=== PATIENT | female | born 1995 | race Caucasian/White ===

== ENCOUNTER 2017-02-22 04:03 | Emergency (ER) | payer OTHER, MEDICAID ==
[~2017-02-22] VITALS: Ht 167.6 cm; Wt 101.2 kg
[~2017-02-22 04:03] MED LIST: ACETAMINOPHEN325 M1 PO; ADIPEX-P37.5 M2 PO; AMOXICOT500 MG PO; CIPRO 500MG TA500 MG PO; CLARITIN-D 10 M1 T24 PO; DILAUDID4 MG PO; FERROUS SULFAT325 M2 PO; FERROUS SULFATE65 MG PO; FIORICET1 CAP PO; FLAGYL500 M1 PO; FLINTSTONES1 CTB PO; FOLIC ACID 1MG T1 MG PO; HYDROCODONE-APA1 TA1 PO; HYDROXYZINE HCL25 M1 PO; IMITREX100 MG PO; KEFLEX 500MG.500 MG PO; LORTAB 5/500 501 TAB PO; MACROBID 100MG100 MG OR; NITROFURANTOIN100 M2 PO; NOMEDS; PEPTO BISM262 MG/15 PO; PRENATAL PLUS1 TA1 PO; PRENATAL VITAMI1 TA3 PO; TOPAMAX100 MG PO; TYLENOL WITH CO1 TA1 PO; VICODIN 5/500 T1 TAB PO; [UNRECOGNIZED DRUG - OTHER] OR; [UNRECOGNIZED DRUG - OTHER] PO
[2017-02-22] MEDS ORDERED: WELLBUTRIN SR100 MG PO (04:11)
[2017-02-22 04:26] LABS: URINE BILIRUBIN - DIPSTICK NEGATIVE (NEG); URINE BLOOD NEGATIVE (NEG)
[2017-02-22 04:38] LABS: HEMOGLOBIN 12.9 g/dL (12.2-16.2); LYMPH % 29.4 % (10-50.0)
[2017-02-22 04:53] LABS: BUN 10 mg/dL (7-18)
[2017-02-22 04:56] LABS: GFR (ESTIMATED) 91 ML/MIN (59-)
--- NOTE | 2017-02-22 05:14 | Emergency Room Report ---
History of Present Illness Time Seen by MD Tejeda Presenting Problem in Triage Pt arrived:Walked Presenting Problem:PT RPTS SHE WAS SLEEPING TONIGHT WHEN HER "CHEST PAIN AND PAIN RIGHT HERE WOKE ME UP." PT C/O EPIGASTRIC AND LEFT ANTERIOR CHEST PAIN, RADIATING TO HER STERNUM. PT DESCRIBES THE PAIN "STABBING" THAT'S INTERMITTENT. PT RPTS SHE WAS SEEN HERE AT [facility] IN THE ER 1 MONTH AGO FOR SIMILAR SYMPTOMS. PT WAS TOLD TO F/U WITH A GI SPECIALIST, BUT RPTS SHE HASN'T BEEN ABLE TO MAKE HER APPT YET. Onset of symptoms date/time:/ or onset unknown for:MEDICAL HX UNKNOWN Treatment Prior to Arrival: PT RPTS SHE TOOK A TYLENOL 3 AT 2200 YESTERDAY EVENING BEFORE GOING TO [facility]ED [facility]IL [facility] Provided by:SELF Sepsis Risk Assessment: Temp: 98.7 B/P: 117/66 MAP: 83 Pulse: 78 Resp: 18 Recent fever? N Clinical Suspician of Infection? N Mental Status: 1 - Regular (Normal Baseline) Sepsis Risk: Have you (or family members/close friends) recently traveled outside the [place]? N If Yes, where/when: Have you had exposure to infectious disease within the past month? N TB? Other? Specify: Source patient, RN notes reviewed, family, old records Exam Limitations no limitations Comment acute onset of upper abd pain which started this am and has pending gi eval- no melena - she reports pain triggered by milk and carbonated beverages Cardiac Chest Pain Chest pain indicative of cardiac No Timing/Duration this evening Severity moderate ALLERGIES Coded Allergies: sulfamethoxazole (From BACTRIM) (Severe, THROAT SWELLING 01/19/17) trimethoprim (From BACTRIM) (Severe, THROAT SWELLING 01/19/17) Home Medications Reported Medications ACETAMINOPHEN WITH CODEINE (Tylenol With Codeine #3 Tablet) 1 TAB PO PRN PAIN BUPROPION HCL SR (Wellbutrin SR 100MG) 100 MG PO TID History Medical History General CAD? No Angina: No CA: No Hypertension? Yes Hyperlipidemia? No CHF? No DVT? No PE? No COPD? No Asthma? No Anemia? No GERD? No Gastric ulcers? No GI Bleed? No Hernia? No Thyroid Problems? No Hypothyroidism? No CVA? No Seizures? No Diabetes? No Renal Insuffiency? No End Stage Renal Disease? No UTI? No Stones? No BPH? No GB Disease: Yes Nephritic Syndrome? No Asplenia? No Hepatitis? No Sickle Cell Disease? No Arthritis? No Migraines? No Cataracts? No Glaucoma? No MRSA? No HIV? No TB? No Anxiety? No Depression? No Cancer? No More? Yes Additional hx: HYSTERECTOMY 2015 Immunization Hx DT/Tetanus Unknown Flu Refused Pneumonia Refuses Surgical Hx Previous Surgery?Y WISDOM TEETH REMOVAL TONSILLECTOMY GALLBLADDER REMOVAL LAP OVARIAN CYST REMOVAL TUBAL ANNE RN INFUSION Hx LMP N/A Family History Family Hx Diabetes Yes CAD No Hypertension Yes Hyperlipidemia No Cancer Yes TB No Social History Smoking Hx Smoker: Never Smoker Tobacco: No Alcohol Alcohol: No Drugs none Review of Systems All Other Systems Reviewed and Negative Constitutional denies fever Eyes denies drainage ENT denies: ear discharge, epistaxis, throat pain. Respiratory denies cough, denies shortness of breath, denies wheezing Cardiovascular denies chest pain, denies syncope Gastrointestinal see HPI, abdominal pain, denies diarrhea, nausea, vomiting Genitourinary denies: abnormal vaginal bleeding, dysuria, frequency, hesitancy. Musculoskeletal denies back pain, denies joint pain, denies joint swelling, denies neck pain Skin denies rash Psychiatric/Neurological denies headache, denies seizure Physical Exam Vital Signs Vital Signs Date Time Temp Pulse Resp B/P Pulse O2 O2 Flow FiO2 Ox Delivery Rate 02/22 0446 18 02/22 0405 98.7 78 18 117/66 100 - WBC >12,000 or <4,000 or 10% bands? 2 or more SIRS Criteria Met? B/P:117/66 MAP:83 Creatinine >2.0? UA output<0.5ml/kg/hr for 2 hrs? Platelet count >100,000? Lactate >2.0mmol/1? INR >1.2 or PTT > than 60 sec? Evidence of Organ Dysfunction? Provider documented clinical suspician of infection? N Sepsis Criteria Count: 0 Sepsis Risk: General Appearance no apparent distress Eye Exam - bilateral eye PERRL, bilateral eye EOMI Ear, Nose, Throat normal ENT inspection Neck supple Respiratory Status No: respiratory distress. Lung Sounds bilateral: lungs clear. 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 No Results/Orders Laboratory Tests 02/22/17416: Urine Color YELLOW, Urine Appearance CLEAR, Urine pH 6.0, Ur Specific [place] 1.025, Urine Protein NEGATIVE, Urine Ketones NEGATIVE, Urine Blood NEGATIVE, Urine Nitrate NEGATIVE, Urine Bilirubin NEGATIVE, Urine Urobilinogen 0.2, Ur Leukocyte Esterase NEGATIVE, Urine RBC OCC, Urine WBC 3-5, Ur Squamous Epith Cells 5-10, Urine Bacteria 1+, Urine Mucus 1+, Urine Glucose NEGATIVE 02/22/17414: Sodium 141, Potassium 3.3 L, Chloride 106, Carbon Dioxide 30, BUN 10, Creatinine 0.8, Estimated Creat Clear 178, Estimated GFR (MDRD) 91, Glucose 97, Calcium 8.2 L, Total Bilirubin 0.8, AST 16, ALT 18, Alkaline Phosphatase 94, Creatine Kinase 86, CK-MB (CK-2) Rel Index 0.6, CK and CKMB Interp < 0.5, Troponin I < 0.02, Total Protein 7.2, Albumin 3.5, Globulin 3.7 H, Albumin/ Globulin Ratio 0.9 L, WBC 10.2, RBC 4.45, Hgb 12.9, Hct 39.2, MCV 88.1, RDW 12.7, Plt Count 205, MPV 6.1 L, Gran % 59.1, Gran # 6.0, Lymphocytes % 29.4, Monocytes % 6.9, Eosinophils % 4.4, Basophils % 0.3, Lymphocytes # 3.0, Monocytes # 0.7, Eosinophils # 0.4, Basophils # 0.0, PUBS MCHC 33.0, MCH 29.1 Current Medication Orders Sig/Sarah Beth Start time Last Medication Dose Route Stop Time Status Admin Famotidine 20 MG ONCE ONE 02/22 530 DC 02/22 IV 02/22 Metoclopramide HCl 10 MG ONCE ONE 02/22 530 DC 02/22 IVP 02/22 Sodium Chloride 8 ML ONCE ONE 02/22 530 DC 02/22 IV 05/04 0531 0529 Famotidine 0 .STK-MED ONE 02/22 0522 DC IV Metoclopramide HCl 0 .STK-MED ONE 02/22 0521 DC .ROUTE Ketorolac 0 .STK-MED ONE 02/22 0444 DC Tromethamine .ROUTE Ondansetron HCl 0 .STK-MED ONE 02/22 0444 DC .ROUTE Ketorolac 30 MG ONCE ONE 02/22 0415 DC 02/22 Tromethamine IV 02/22 0416 0446 Ondansetron HCl 4 MG ONCE ONE 02/22 0415 DC 02/22 IV 02/22 0416 0446 Sodium Chloride 10 ML PRN PRN 02/22 0415 AC IV 02/23 0414 Orders Procedure Date/time Status DIET-NOTHING BY MOUTH 02/22 B Active LIPASE 02/[address] ABD & PELVIS W/O CONTRAST 02/23 424 Active ELECTROCARDIOGRAM REQUEST 02/[address] ABD/PELVIS REQ 02/22 0416 Complete CHEST(2 VIEWS-NOT PORTABLE) 02/22 0416 Active IV SALINE LOCK 02/22 0416 Active URINALYSIS/COMPLETE 02/23 416 Complete CBC WITH AUTO DIFF 02/23 416 Complete CARDIAC ENZYMES 02/23 416 Complete CHEM 12 PROFILE 02/23 416 Complete CM/EKG CM/mechatronics engineer Rhythm Normal Sinus Rhythm EKG no evid. of ischemic chgs XRAY/CT/US XRAY/CT/US 1 XRAY chest XR interpretation by reviewed by me Xray Results normal/NAD XRAY/CT/US 2 CT abdomen, pelvis CT interpretation by discussed w/radiologist Time results known: 05 CT Results abnormal (nonspecific) Departure Departure Time of Disposition 0540 Disposition DC Home or Self Care(routine) Clinical Impression Primary Impression: Gastritis Qualifiers: Gastritis type: unspecified gastritis Chronicity: acute Gastritis bleeding: without bleeding Qualified Code: K29.00 - Acute gastritis without bleeding Condition STABLE Referrals Elroy Barker MD (Family) Patient Instructions DI for Nausea -- Adult Additional Instructions call pcp for follow up Discharge Counseling Counseled pt/family regarding diagnosis, test results, medications/RX, follow up needs ED Critical Care Critical Care No at [id number]
[2017-02-22 05:52] VITALS: BP 100/53
--- NOTE | 2017-02-22 06:57 | RADIOLOGY REPORT PS360 ---
CHEST(2 VIEWS-NOT PORTABLE) HISTORY: CHEST PAIN ORDERING PHYSICIAN: Arlet Barker MD PATIENT AGE: 21 years COMPARISON: None available FINDINGS: The cardiomediastinal silhouette and pulmonary vascularity are within normal limits. The lungs are clear without infiltrates, suspicious nodules, or pleural effusions. No acute bony abnormalities. Calcified granuloma is present in the left lower lobe IMPRESSION: Negative chest, no acute finding, old granulomatous disease
--- NOTE | 2017-02-22 07:38 | RADIOLOGY REPORT PS360 ---
CT ABD PELVIS W/O CONTRAST CLINICAL INDICATION: Upper abdominal pain ABD PAIN ORDERING PHYSICIAN: Arlet Barker MD PATIENT AGE: 21 years COMPARISON: [id number] TECHNIQUE: Axial images obtained with sagittal and coronal reformats. PROCEDURE: Oral Contrast: None IV Contrast: None . FINDINGS: Lower thorax: No acute finding ABDOMEN: Liver: Cholecystectomy. No biliary dilatation Gallbladder: Nondistended. No radio opaque stones. Pancreas: No masses or peripancreatic fluid collections. Spleen: Unremarkable. Adrenals: Unremarkable Kidneys/ureters: No masses. No renal calculi. No hydronephrosis. No perinephric fluid collections. No ureteral dilatation or obvious ureteral calculi. Stomach bowel: There are moderate amount stool in the colon. There are a few fluid-filled loops of jejunum noted with few scattered air-fluid levels nonspecific Appendix: No evidence of appendicitis. PELVIS: Reproductive: Hysterectomy. Enlarged left ovary with 3 cm area of isodensity with fluid fluid level. Suspect hemorrhagic ovarian cyst. Bladder: Nondistended. No obvious stones or masses. ABDOMEN & PELVIS: Peritoneum: Small amount fluid is present in the cul-de-sac. Lymph nodes: No enlarged lymph nodes apparent. Vasculature: No evidence of abdominal aortic aneurysm. No retroperitoneal hemorrhage evident. Bones: No acute finding IMPRESSION: 1. Probable 3 cm hemorrhagic left ovarian cyst with small amount fluid in the cul-de-sac. Left ovary slightly increased in size compared to the previous exam. Consider pelvic ultrasound for further evaluation. 2. Scattered air-fluid levels with questionable mucosal thickening of the jejunum. Enteritis is a consideration.
== END 2017-02-22 05:53 | disposition home or self-care (01) ==
LOC: ER 04:03
PROVIDERS: Emergency Medicine
DX: K29.00 Acute gastritis without bleeding (principal)
CPT/HCPCS: J2405

== ENCOUNTER 2017-05-20 23:44 | Emergency (ER) | payer OTHER, MEDICAID ==
[~2017-05-20] VITALS: Ht 167.6 cm; Wt 99.8 kg
[~2017-05-20 23:44] MED LIST changes: +WELLBUTRIN SR100 MG PO
[2017-05-20] MEDS ORDERED: ADIPEX-P37.5 M2 PO (23:55)
--- OUTSIDE RECORDS SUMMARY | 2017-05-21 00:18 | External Medical Summary Rpt ---
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, BILATERAL [id number] J02.0 STREPTOCOCC AL PHARYNGITIS K29.70 GASTRITIS, UNSPECIFIED , WITHOUT BLEEDING K52.9 NONINFECTIV E GASTROENTER ITIS AND COLITIS, UNSPECIFIED 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 BREATHING Severe Sulfamethoxazole S-DIFF. BREATHING Severe Medications Na ND Rx Da Fi Fi Am Da Di Ph RX Ph St me C No te ll ll ou ys ag ar # ys at rm s nt no ma ic us Or Da si cy ia de te s n re d Sa 63 10 0 No li 80 -2 ne 70 3- Lo 10 20 ng Fl 07 13 er us 5 h Ac 10 ti ML ve Sy ri ng e Vital Signs 08-13-2013 21:30 Name Value Interpretat Reference Comment ion Range BP 70 mm[Hg] Diastolic BP Systolic 137 mm[Hg] Heart 69 /min Rate/Pulse O2% 98 % Respiratory 20 /min Rate 08-13-2013 21:00 Name Value Interpretat Reference Comment ion Range BP 68 mm[Hg] Diastolic BP Systolic 138 mm[Hg] Heart 78 /min Rate/Pulse O2% 100 % Respiratory 20 /min Rate Results Labs Lab Lab Date Result Refere Interp Status Commen Order Detail nces retati t Range on B-HCG Ur Ql (08-13-2013 21:10) B-HCG 10-23-2 NEGATIV NEG complet Ur Ql 013 E ed 21:10 URINALYSIS/COMPLETE (08-13-2013 21:10) URINE 10-23-2 YELLOW YELLOW complet COLOR 013 ed 21:10 URINE 10-23-2 CLEAR CLEAR complet APPEARA 013 ed NCE 21:10 URINE 10-23-2 NEGATIV NEG complet GLUCOSE 013 E ed - 21:10 DIPSTIC K URINE 10-23-2 NEGATIV NEG complet BILIRUB 013 E ed IN - 21:10 DIPSTIC K URINE 10-23-2 NEGATIV NEG complet KETONE 013 E mg/dL ed 21:10 URINE 10-23-2 1.015 1.005-1 complet SPECIFI 013 UNK .030 ed C 21:10 GRAVITY URINE 10-23-2 NEGATIV NEG complet BLOOD 013 E ed 21:10 URINE 10-23-2 6.0 UNK 5.0-8.5 complet PH 013 ed 21:10 URINE 10-23-2 NEGATIV NEG complet PROTEIN 013 E mg/dL ed - 21:10 DIPSTIC K URINE 10-23-2 0.2 NEG complet UROBILI 013 E.U./dL ed NOGEN - 21:10 DIPSTIC K URINE 10-23-2 NEGATIV NEG complet NITRATE 013 E ed - 21:10 DIPSTIC K URINE 10-23-2 TRACE NEG complet LEUK 013 ed ESTERAS 21:10 E URINE 10-23-2 5-10 O complet WBC 013 wbc/hpf ed 21:10 URINE 10-23-2 10-20 0-5 complet SQUAMOU 013 #/hpf ed S CELLS 21:10 URINE 10-23-2 2+ O complet BACTERI 013 ed A 21:10 URINE 10-23-2 2+ OCC complet MUCUS 013 ed 21:10 COMPREHENSIVE METABOLIC PANEL (08-13-2013 20:24) Glucose 10-23-2 92 74-106 complet 013 mg/dL ed Bld-mCn 20:24 c BUN 10-23-2 8 mg/dL 7-18 complet Bld-mCn 013 ed c 20:24 Creat 23-2 0.9 0.6-1.0 complet SerPl-m 013 mg/dL ed Cnc 20:24 Sodium 23-2 140 136-145 complet SerPl-s 013 mmoL/L ed Cnc 20:24 Potassi 08-13-2 3.3 3.5-5.1 complet um 013 mmoL/L ed SerPl-s 20:24 Cnc Chlorid 08-13-2 105 98-107 complet e 013 mmoL/L ed SerPl-s 20:24 Cnc CO2 08-13-2 28 21.0-32 complet SerPl-s 013 mmoL/L .0 ed Cnc 20:24 Calcium 23-2 8.6 8.5-10. complet 013 mg/dL 1 ed SerPl-m 20:24 Cnc Prot 23-2 7.5 6.4-8.2 complet SerPl-m 013 gm/dL ed Cnc 20:24 Albumin 08-13-2 4.1 3.4-5.0 complet 013 gm/dL ed SerPl-m 20:24 Cnc Globuli 08-13-2 3.4 1.3-3.2 complet n 013 gm/dL ed Ser-mCn 20:24 c Albumin 08-13-2 1.2 UNK 1.1-1.8 complet /Glob 013 ed SerPl-m 20:24 Rto Bilirub 08-13-2 0.9 0.2-1.0 complet 013 mg/dL ed SerPl-m 20:24 Cnc AST 08-13-2 15 U/L 15-37 complet SerPl-c 013 ed Cnc 20:24 ALT 23-2 30 U/L 30-65 complet SerPl-c 013 ed Cnc 20:24 ALP 23-2 164 U/L 50-136 complet SerPl-c 013 ed Cnc 20:24 Amylase SerPl-cCnc (08-13-2013 20:24) Amylase 1023-2 40 U/L 25-115 complet 013 ed SerPl-c 20:24 Cnc LIPASE (08-13-2013 20:24) LIPASE 23-2 62 U/L 73-393 complet 013 ed 20:24 CBC with AUTO DIFF (08-13-2013 20:24) WBC # 10-23-2 6.5 4.5-13. complet Bld 013 K/MM3 0 ed Auto 20:24 RBC # 10-23-2 4.61 4.2-5.4 complet Bld 013 M/mm3 ed Auto 20:24 Hgb 10-23-2 12.8 12.2-16 complet Bld-mCn 013 g/dL .2 ed c 20:24 Hct Fr 10-23-2 39.2 % 37.0-47 complet Bld 013 .0 ed 20:24 MCV RBC 10-23-2 85.1 fl 82.2-97 complet 013 .8 ed 20:24 MCH RBC 10-23-2 27.9 pg 27-31.2 complet Qn 013 ed Auto 20:24 MEAN 10-23-2 32.7 31.8-35 complet CORPUSC 013 g/dl .4 ed ULAR 20:24 HGB CONC RDW RBC 10-23-2 15.0 % 11.5-17 complet Auto 013 .5 ed 20:24 Platele 10-23-2 239 142-424 complet t Bld 013 K/mm3 ed Ql 20:24 Manual MEAN 10-23-2 7.3 fl 7.4-10. complet PLATELE 013 4 ed T 20:24 VOLUME Granulo 10-23-2 60.1 % 37.0-80 complet cytes 013 .0 ed Fr Bld 20:24 Auto LYMPH % 10-23-2 31.5 % 10-50 complet 013 ed 20:24 Monocyt 10-23-2 5.7 % complet es Fr 013 ed Bld 20:24 Auto Eosinop 10-23-2 2.2 % 0.1-12. complet hil Fr 013 0 ed Bld 20:24 Auto Basophi 10-23-2 0.3 % 0.1-2.0 complet ls Fr 013 ed Bld 20:24 Auto Granulo 10-23-2 3.9 1.8-7.8 complet cytes # 013 K/mm3 ed Bld 20:24 Auto Lymphoc 10-23-2 2.1 0.7-4.5 complet ytes Fr 013 K/mm3 ed Bld 20:24 Auto Monocyt 10-23-2 0.4 0.1-1.0 complet es # 013 K/mm3 ed Bld 20:24 Auto Eosinop 10-23-2 0.1 0.0-0.4 complet hil # 013 K/mm3 ed Bld 20:24 Auto Basophi 0.0 0-0.2 complet ls # 013 K/MM3 ed Bld 20:24 Auto Encounters Encounter Start End Date Code Location Performer Type Date Emergency ANA Barker MD (ER) 3 20:25 3 21:59 [facility]
--- OUTSIDE RECORDS SUMMARY | 2017-05-21 00:18 | External Medical Summary Rpt ---
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 BREATHING Severe Sulfamethoxazole S-DIFF. [...] Barker MD (ER) 3 20:25 3 21:59 [facility]
--- OUTSIDE RECORDS SUMMARY | 2017-05-21 00:19 | External Medical Summary Rpt ---
Author Author [employer] Organization [employer] Address Unknown Phone Unavailable Purpose Continuity of Care Document - through 2016
--- OUTSIDE RECORDS SUMMARY | 2017-05-21 00:19 | External Medical Summary Rpt ---
Demographics Preferred Language Arabic Marital Status Unknown Buddhist Affiliation Unknown Race Unknown Ethnic Group Unknown Author Author CASIE Address Unknown Phone Immunization Unable to retrieve immunization data due to connection failure with Immunization Registry. Please try again later.
--- OUTSIDE RECORDS SUMMARY | 2017-05-21 00:19 | External Medical Summary Rpt ---
Author Author CASIE Wen, CASIE [employer] Organization [employer] Address Unknown Phone Unavailable
--- OUTSIDE RECORDS SUMMARY | 2017-05-21 00:19 | External Medical Summary Rpt ---
Demographics Preferred Language Pashto Marital Status Unknown Holiness Affiliation Unknown Race Unknown Ethnic Group Unknown Author Author CASIE Address Unknown Phone Immunization Unable to retrieve immunization data due to connection failure with Immunization Registry. Please try again later.
[2017-05-21 00:31] LABS: HEMOGLOBIN 12.7 g/dL (12.2-16.2); LYMPH # 1.3 K/mm3 (0.7-4.5); LYMPH % 13.1 % (10-50.0)
--- NOTE | 2017-05-21 00:33 | Emergency Room Report ---
History of Present Illness Time Seen by 234Dean Presenting Problem in Triage Pt arrived:Walked Presenting Problem:STATES THAT SHE HAS HAD A MIGRAINE FOR 3 HOURS NOW. ALSO LEFT MID ABDOMEN PAIN. STATES THAT SHE HAS THROWN UP. 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 N Clinical Suspician of Infection? N Mental Status: 1 - Regular (Normal Baseline) Sepsis Risk:Low Sepsis Risk Have you (or family members/close friends) recently traveled outside the [place]? N If Yes, where/when: Have you had exposure to infectious disease within the past month? N TB? Other? Specify: Comment The patient has 2 complaints. She has a history of migraines which she says have become more frequent, daily over the past 4 months. She says that usually they will respond to Motrin, but if they don't she comes to the emergency room. She now has a right-sided migraine for 3 hours, unresponsive to Motrin. One episode of vomiting. She says she sees Dr. Barker's nurse practitioner and they are aware of her headaches, but are only treating her with Motrin. She also complains of LEFT upper quadrant abdominal pain for a couple of days. ALLERGIES Coded Allergies: sulfamethoxazole (From BACTRIM) (Severe, THROAT SWELLING 01/19/17) trimethoprim (From BACTRIM) (Severe, THROAT SWELLING 01/19/17) Home Medications Reported Medications Phentermine HCl (Adipex-P) 37.5 MG PO DAILY History Medical History General CAD? No Angina: No [place]: No Hypertension? Yes Hyperlipidemia? No CHF? No DVT? No PE? No COPD? No Asthma? No Anemia? No GERD? No Gastric ulcers? No GI Bleed? No Hernia? No Thyroid Problems? No Hypothyroidism? No CVA? No Seizures? No Diabetes? No Renal Insuffiency? No End Stage Renal Disease? No UTI? No Stones? No BPH? No GB Disease: Yes Nephritic Syndrome? No Asplenia? No Hepatitis? No Sickle Cell Disease? No Arthritis? No Migraines? No Cataracts? No Glaucoma? No MRSA? No HIV? No TB? No Anxiety? No Depression? Yes Cancer? No More? 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 She has had 3 CT scans of the abdomen this year, 01/19/17, 01/21/17, and 02/22/17. These show a LEFT ovarian cyst and questionable colitis or enteritis. Review of Systems All Other Systems Reviewed and Negative Constitutional denies fever Gastrointestinal abdominal pain, vomiting Psychiatric/Neurological headache, denies numbness, denies weakness Physical Exam Vital Signs Vital Signs Date Time Temp Pulse Resp B/P Pulse O2 O2 Flow FiO2 Ox Delivery Rate 05/21 0145 97.9 84 16 133/79 100 05/21 0135 84 16 133/79 100 05/21 0126 18 05/21 0038 81 16 129/84 100 05/20 2350 97.9 88 18 110/72 100 General Appearance normal appearance, WD/WN Eye Exam - bilateral eye normal exam, bilateral eye PERRL, bilateral eye EOMI Ear, Nose, Throat hearing grossly normal, normal ENT inspection Neck normal inspection, non-tender, supple, full range of motion Respiratory Status Yes: trachea midline, chest symmetrical, non tender chest. No: respiratory distress. Lung Sounds bilateral: normal breath sounds, lungs clear. 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 No Results/Orders Laboratory Tests 07/31/17 0034: Urine Color YELLOW, Urine Appearance SL CLOUDY, Urine pH 6.5, Ur Specific Shar[place] 1.025, Urine Protein NEGATIVE, Urine Ketones NEGATIVE, Urine Blood NEGATIVE, Urine Nitrate NEGATIVE, Urine Bilirubin NEGATIVE, Urine Urobilinogen 0.2, Ur Leukocyte Esterase NEGATIVE, Urine WBC OCC, Ur Squamous Epith Cells 10- 20, Calcium Oxalate Crystal 4+, Urine Mucus 4+, Urine Glucose NEGATIVE 05/21/1722: Amylase 40, Lipase 72 L 05/21/1722: Sodium 141, Potassium 3.7, Chloride 104, Carbon Dioxide 29, BUN 13, Creatinine 0.8, Estimated Creat Clear 175, Estimated GFR (MDRD) 91, Glucose 130 H, Calcium 9.3, Total Bilirubin 1.0, AST 17, ALT 17, Alkaline Phosphatase 99, Total Protein 7.6, Albumin 4.0, Globulin 3.6 H, Albumin/Globulin Ratio 1.1, WBC 10.1, RBC 4.52, Hgb 12.7, Hct 39.8, MCV 88.1, RDW 13.2, Plt Count 225, MPV 7.1 L, Gran % 80.1 H, Gran # 8.1 H, Lymphocytes % 13.1, Monocytes % 4.5, Eosinophils % 2.0, Basophils % 0.3, Lymphocytes # 1.3, Monocytes # 0.5, Eosinophils # 0.2, Basophils # 0.0, PUBS MCHC 32.0, MCH 28.2 Current Medication Orders Sig/Sarah Beth Start time Last Medication Dose Route Stop Time Status Admin Diphenhydramine HCl 25 MG ONCE ONE 05/21 130 DC 05/21 IV 05/21 Ketorolac 30 MG ONCE ONE 05/21 130 DC 05/21 Tromethamine IV 05/21 Metoclopramide HCl 10 MG ONCE ONE 05/21 130 DC 05/21 IVP 05/21 Diphenhydramine HCl 0 .STK-MED ONE 05/21 125 DC .ROUTE Ketorolac 0 .STK-MED ONE 05/21 124 DC Tromethamine .ROUTE Metoclopramide HCl 0 .STK-MED ONE 05/21 124 DC .ROUTE Sodium Chloride 10 ML PRN PRN 05/21 0015 DCD IV 05/22 0007 Orders Procedure Date/time Status LIPASE 05/21 32 Complete AMYLASE 05/21 32 Complete IV SALINE LOCK 05/21 7 Active URINALYSIS/COMPLETE 05/21 7 Complete CBC WITH AUTO DIFF 05/21 7 Complete CHEM 12 PROFILE 05/21 7 Complete Progress - 1:40 AM: Patient states she is feeling better after intravenous medications and is requesting to be discharged. Abdomen is very soft, benign without peritoneal signs. I do not feel she needs another CT scan, having just had 3 in the past couple of months. I explained this to the patient. Departure Departure Disposition DC Home or Self Care(routine) Clinical Impression Primary Impression: Migraine Qualifiers: Migraine type: without aura Status migrainosus presence: with status migrainosus Intractability: not intractable Qualified Code: G43.001 - Migraine without aura, not intractable, with status migrainosus Secondary Impressions: Abdominal pain, left upper quadrant Condition STABLE Referrals Lucero [place],Elroy Celestin (Family) Patient Instructions DI for Migraine Additional Instructions Additional instructions for HEADACHE: See your physician as soon as possible for further evaluation. Return immediately if worsening headache, vomiting, problems with vision or speech, fever, numbness or weakness of the extremities, neck pain or stiffness. ED Critical Care Critical Care No at [id number]
[2017-05-21 00:41] LABS: URINE BILIRUBIN - DIPSTICK NEGATIVE (NEG); URINE BLOOD NEGATIVE (NEG)
[2017-05-21 01:45] VITALS: BP 133/79
== END 2017-05-21 01:45 | disposition home or self-care (01) ==
LOC: ER 23:44
PROVIDERS: Emergency Medicine
DX: G43.001 Migraine without aura, not intractable, with status migrainosus (principal); I10 Essential (primary) hypertension; R10.12 Left upper quadrant pain

== ENCOUNTER 2017-07-14 01:11 | Emergency (ER) | payer OTHER, MEDICAID ==
[~2017-07-14] VITALS: Ht 167.6 cm; Wt 97.5 kg
[2017-07-14] MEDS ORDERED: WELLBUTRIN SR100 MG PO (01:35)
[2017-07-14 02:03] LABS: LYMPH # 2.3 K/mm3 (0.7-4.5); LYMPH % 23.3 % (10-50.0); URINE BILIRUBIN - DIPSTICK NEGATIVE (NEG); URINE BLOOD NEGATIVE (NEG)
[2017-07-14 02:14] LABS: AMPHETAMINES/METAMPHETAMINES NEGATIVE ng/mL (<1000)
--- NOTE | 2017-07-14 03:13 | Emergency Room Report ---
History of Present Illness Time Seen by MD Singer Presenting Problem in Triage Pt arrived:Walked Presenting Problem:states anti-depressant is not working. feelings of not wanting to be here anymore, flight of thought. tearful and emotionally labile. distraught over loss of close aunt to violent crime and feelings of isolation. Onset of symptoms date/time:07/10/17 or onset unknown for: Treatment Prior to Arrival: wellbutrin GUIDE ALPINE Provided by:PHYSICIAN Sepsis Risk Assessment: Temp: 98 B/P: 138/88 MAP: 87 Pulse: 99 Resp: 20 Recent fever? N Clinical Suspician of Infection? N Mental Status: 1 - Regular (Normal Baseline) Sepsis Risk:Low Sepsis Risk Have you (or family members/close friends) recently traveled outside the [place]? N If Yes, where/when: Have you had exposure to infectious disease within the past month? N TB? Other? Specify: Source patient, RN notes reviewed, family, old records Exam Limitations no limitations Comment pt with depression over the last few months and over the last few days has inc anxiety but she denied suidial thoughts at this time - her sister also feels she is not suicidial Cardiac Chest Pain Chest pain indicative of cardiac No Timing/Duration this evening Severity moderate ALLERGIES Coded Allergies: sulfamethoxazole (From BACTRIM) (Severe, THROAT SWELLING 01/19/17) trimethoprim (From BACTRIM) (Severe, THROAT SWELLING 01/19/17) Home Medications Reported Medications Phentermine HCl (Adipex-P) 37.5 MG PO DAILY BUPROPION HCL SR (Wellbutrin SR 100MG) 100 MG PO BID History Medical History General CAD? No Angina: No [place]: No Hypertension? Yes Hyperlipidemia? No CHF? No DVT? No PE? No COPD? No Asthma? No Anemia? No GERD? No Gastric ulcers? No GI Bleed? No Hernia? No Thyroid Problems? No Hypothyroidism? No CVA? No Seizures? No Diabetes? No Renal Insuffiency? No End Stage Renal Disease? No UTI? No Stones? No BPH? No GB Disease: Yes Nephritic Syndrome? No Asplenia? No Hepatitis? No Sickle Cell Disease? No Arthritis? No Migraines? No Cataracts? No Glaucoma? No MRSA? No HIV? No TB? No Anxiety? No Depression? Yes Cancer? No More? 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 Respiratory denies cough, denies shortness of breath, denies stridor, denies wheezing Cardiovascular denies chest pain, denies palpitations, denies syncope Gastrointestinal denies abdominal pain, denies diarrhea, denies vomiting Genitourinary denies: dysuria, frequency, hesitancy, hematuria. Musculoskeletal denies back pain, denies joint pain, denies joint swelling, denies neck pain Skin denies rash Psychiatric/Neurological see HPI, anxiety, depressed, denies seizure Physical Exam Vital Signs Vital Signs Date Time Temp Pulse Resp B/P Pulse O2 O2 Flow FiO2 Ox Delivery Rate 07/14 0259 99 20 138/88 100 07/14 0124 98.0 87 14 109/76 98 - WBC >12,000 or <4,000 or 10% bands? 2 or more SIRS Criteria Met? B/P:138/88 MAP:87 Creatinine >2.0? UA output<0.5ml/kg/hr for 2 hrs? Platelet count >100,000? Lactate >2.0mmol/1? INR >1.2 or PTT > than 60 sec? Evidence of Organ Dysfunction? Provider documented clinical suspician of infection? N Sepsis Criteria Count: 0 Sepsis Risk: Low Sepsis Risk General Appearance no apparent distress Eye Exam - bilateral eye PERRL, bilateral eye EOMI Ear, Nose, Throat normal ENT inspection Neck supple Respiratory Status No: respiratory distress. 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 Yes Risk Assessment Score Risk Assessment Score Response Value DETAILS: N/A-Doesn't apply 0 AVAILABILITY OF MEANS: Not available;have to get 1 TIME: N/A-Doesn't apply 0 LETHALITY OF METHOD: N/A-Doesn't apply 0 CHANCE OF INTERVENTION: Others present most time 1 PREVIOUS SUICIDE ATTEMPS: None or one low lethality 1 STRESS: Mod reaction to loss/chng 2 COPING BEHAVIOR: Daily activities continue 1 DEPRESSION: Mod, some sadness/lonely 2 SUICIDE RESOURCES: S.O. available/willing 1 COMMUNICATION ASPECTS: Directly express feeling 1 LIFESTYLE: Stable at work/school 1 MEDICAL STATUS: No sig. medical problems 1 Total 12 Nursing notified of risk? Yes Medical Decision Making LABS/Meds/Orders Pt receiving controlled substance in ED? No Results/Orders Laboratory Tests 07/14/17149: Sodium 139, Potassium 3.7, Chloride 104, Carbon Dioxide 31, BUN 11, Creatinine 0.8, Estimated Creat Clear 171, Estimated GFR (MDRD) 91, Glucose 96, Calcium 9.7 , WBC 9.7, RBC 4.80, Hgb 14.0, Hct 41.4, MCV 86.3, RDW 12.9, Plt Count 255, MPV 7.4, Gran % 66.0, Gran # 6.4, Lymphocytes % 23.3, Monocytes % 7.4, Eosinophils % 2.9, Basophils % 0.4, Lymphocytes # 2.3, Monocytes # 0.7, Eosinophils # 0.3, Basophils # 0.0, PUBS MCHC 33.9, MCH 29.3, Opiates Screen NEGATIVE, Urine Methadone Screen NEGATIVE, Barbiturates NEGATIVE, Phencyclidine Screen NEGATIVE, Amphetamines Screen NEGATIVE, Benzodiazepines Screen NEGATIVE, Cocaine Screen NEGATIVE, Marijuana (THC) Screen NEGATIVE, Urine Color YELLOW, Urine Appearance CLEAR, Urine pH 7.0, Ur Specific [place] 1.020, Urine Protein NEGATIVE, Urine Ketones NEGATIVE, Urine Blood NEGATIVE, Urine Nitrate NEGATIVE, Urine Bilirubin NEGATIVE, Urine Urobilinogen 0.2, Ur Leukocyte Esterase NEGATIVE, Ur Squamous Epith Cells 10-20, Urine Glucose NEGATIVE Orders Procedure Date/time Status URINALYSIS/COMPLETE 07/14 150 Complete DRUG ABUSE SCREEN (TRIAGE) 07/14 150 Complete CBC WITH AUTO DIFF 07/14 150 Complete BASIC METABOLIC PROFILE 07/14 150 Complete Departure Departure Time of Disposition 0346 Disposition DC Home or Self Care(routine) Clinical Impression Primary Impression: Depression Qualifiers: Depression Type: dysthymia Qualified Code: F34.1 - Dysthymic disorder Condition STABLE Referrals Lucero [place],Elroy Celestin (Family) Patient Instructions DI for Depression -- Adult Additional Instructions will see in office sunday and wellbutrin Discharge Counseling Counseled pt/family regarding diagnosis, test results, follow up needs ED Critical Care Critical Care No at 0347
[2017-07-14 04:04] VITALS: BP 138/88
== END 2017-07-14 04:04 | disposition home or self-care (01) ==
LOC: ER 01:11
PROVIDERS: Emergency Medicine
DX: F34.1 Dysthymic disorder (principal); I10 Essential (primary) hypertension; Z88.2 Allergy status to sulfonamides

== ENCOUNTER → 2017-07-16 | Outpatient (CLI) | payer OTHER, MEDICAID | LOC: LAB 15:11 | DX: F34.1 Dysthymic disorder (principal) ==